=== PATIENT | female | born 1990 | race Hispanic/Latino ===

== ENCOUNTER 2019-04-17 11:12 | Emergency (ER) | payer MEDICAID ==
[2019-04-17] MEDS ORDERED: SODIUM CHLORIDE 0.9% 1000ML 1,000 ML IV ONE (12:48)
[2019-04-17 12:51] LABS: BASOPHILS % (AUTO) 0.4 % (0.0-5.0); EOSINOPHILS % (AUTO) 0.8 % (0.0-8.0); HEMATOCRIT 38.3 % (36-48); LYMPHOCYTES % (AUTO) 17.5 % (21.0-51.0); MEAN CORPUSCULAR HEMOGLOBIN 30.3 pg (27.0-33.0); MEAN CORPUSCULAR VOLUME 86.7 fL (79-99); MONOCYTES % (AUTO) 6.3 % (3.0-13.0); PLATELET COUNT (AUTO) 182 K/uL (130-400); RED BLOOD CELL COUNT(AUTO) 4.41 MIL/uL (4.00-5.50); RED CELL DISTRIBUTION WIDTH 13.3 % (11.0-15.5); WHITE BLOOD COUNT (AUTO) 8.1 K/uL (4.8-10.8)
[2019-04-17 13:03] LABS: CREATININE 0.5 mg/dL (0.5-1.5); POTASSIUM 3.6 mmol/L (3.5-5.1)
== END 2019-04-17 14:40 | disposition home or self-care (01) ==
LOC: EDH 11:12
DX: O20.0 Threatened abortion (principal); O99.612 Diseases of the digestive system complicating pregnancy, second trimester; K21.9 Gastro-esophageal reflux disease without esophagitis; Z3A.15 15 weeks gestation of pregnancy
CPT/HCPCS: 36415; 76805; 80048; 84702; 85025; 86900; 86901; 99285; J7030

== ENCOUNTER → 2021-03-22 | Outpatient (CLI) | payer MEDICAID | END | disposition home or self-care (01) | LOC: SHCH 10:48 | PROVIDERS: ATTEND Internal Medicine Cardiovascular Disease | DX: R07.9 Chest pain, unspecified (principal) | CPT/HCPCS: 93306; 93356 ==